=== PATIENT | female | born 1960 | race Caucasian/White ===

== ENCOUNTER → 2018-05-06 | Outpatient (CLI) | payer OTHER ==
--- NOTE | 2018-05-06 14:56 | DIAGNOSTIC IMAGING REPORT ---
L-SPINE MIN 4 VIEWS ROUTINE HISTORY: Pain M25.561 Bilateral knee [id number] COMPARISON: None. FINDINGS: There is no fracture. No subluxation. Disc spaces are preserved. IMPRESSION: No fracture or subluxation within the lumbar spine. The above report was generated using voice recognition software. It may contain grammatical, syntax or spelling errors. Electronically signed by: Roshan Banegas M.D. 05/06/2018 2:55 PM Dictated Date/Time: 05/06/2018 2:55 PM
--- NOTE | 2018-05-06 14:58 | DIAGNOSTIC IMAGING REPORT ---
L KNEE 1 OR 2 VIEWS ROUTINE, R KNEE 1 OR 2 VIEWS ROUTINE CLINICAL HISTORY: Bilateral knee pain. COMPARISON STUDY: None. FINDINGS: No fracture or dislocation. Soft tissues are unremarkable. No knee effusions. Cartilage spaces are maintained. Small subchondral cystic focus within the left patella. This measures 5 mm. No intra-articular loose bodies. IMPRESSION: 1. No fracture or dislocation within the right or left knee. 2. Small subchondral cystic focus within the left patella. This could be due to old trauma or degenerative change. Electronically signed by: Daren Thorne M.D. 05/06/2018 2:57 PM Dictated Date/Time: 05/06/2018 2:54 PM
--- NOTE | 2018-05-06 14:58 | DIAGNOSTIC IMAGING REPORT ---
SACRUM COCCYX MIN 2 VIEWS HISTORY: 57 years-old Female M25.561 Bilateral knee [id number] acute low back and sacral pain COMPARISON: Lumbar spine radiographs of same day TECHNIQUE: 2 views of the sacrum and coccyx FINDINGS: Intervertebral disc space narrowing at L5-S1. Mild general changes of the SI joints. Sacrum and coccyx appear intact without acute fracture or subluxation identified. No erosive changes of the SI joints to suggest sacroiliitis. Probable phleboliths of the left hemipelvis. IMPRESSION: No acute fracture or subluxation. The above report was generated using voice recognition software. It may contain grammatical, syntax or spelling errors. Electronically signed by: Johnny Esquivel M.D. 05/06/2018 2:56 PM Dictated Date/Time: 05/06/2018 2:55 PM
[2018-05-06 17:17] LABS: HEMATOCRIT 41.8 % (37-47); HEMOGLOBIN 13.3 g/dL (12.0-16.0); MEAN CORPUSCULAR HEMOGLOBIN 26.1 pg (25-34); MEAN CORPUSCULAR HGB CONC 31.8 g/dl (32-36); MEAN PLATELET VOLUME 10.7 fL (7.4-10.4); PLATELET COUNT 248 K/uL (130-400); RED CELL DISTRIBUTION WIDTH CV 15.5 % (11.5-14.5); RED CELL DISTRIBUTION WIDTH SD 46.5 fL (36.4-46.3); WHITE BLOOD COUNT 10.08 K/uL (4.8-10.8)
[2018-05-06 17:52] LABS: ALBUMIN 3.9 gm/dl (3.4-5.0); ALKALINE PHOSPHATASE 72 U/L (45-117); ALT/SGPT 22 U/L (12-78); AST/SGOT 16 U/L (15-37); BLOOD UREA NITROGEN 22 mg/dl (7-18); CALCIUM 8.8 mg/dl (8.5-10.1); CARBON DIOXIDE 26 mmol/L (21-32); CHOLESTEROL 215 mg/dl (0-200); CREATININE 0.78 mg/dl (0.60-1.20); GLUCOSE 108 mg/dl (70-99); LDL CHOLESTEROL CALCULATED 109 mg/dl; POTASSIUM 3.7 mmol/L (3.5-5.1); SODIUM 138 mmol/L (136-145); TOTAL PROTEIN 7.9 gm/dl (6.4-8.2)
[2018-05-07 06:08] LABS: HEMOGLOBIN A1C 5.7 % (4.5-5.6)
== END | disposition home or self-care (01) ==
LOC: C.LABPVFM 14:15
PROVIDERS: ATTEND Family Medicine
DX: M25.562 Pain in left knee (principal); M25.561 Pain in right knee; M85.88 Other specified disorders of bone density and structure, other site

== ENCOUNTER → 2018-05-07 | Outpatient (CLI) | payer OTHER ==
--- NOTE | 2018-05-10 15:10 | MAMMOGRAPHY REPORT ---
BILATERAL DIGITAL SCREENING MAMMOGRAM TOMOSYNTHESIS WITH CAD: 05/07/2018 CLINICAL HISTORY: Routine screening. Patient has no complaints. TECHNIQUE: The study was acquired using full field digital technology and interpreted from soft copy. Breast tomosynthesis in addition to standard 2D mammography was performed. Current study was also ev aluated with a Computer Aided Detection (CAD) system. COMPARISON: No prior exams were available for comparison. BREAST COMPOSITION: The tissue of both breasts is heterogeneously dense, which may obscure small mass es. FINDINGS: There are faint calcifications throughout the left upper outer quadrant, for which spot magnification views are recommended for further evaluation. Additionally, there is a nodular 6 mm asymmetry seen within the right medial breast middle depth on the cc view, thought to project superiorly based on th e tomosynthesis localizer bar. Recommend spot compression tomosynthesis views and possible breast ul trasound for further evaluation. Remainder of both breasts demonstrate no suspicious masses, calcifications, or areas of architectural distortion. There are scattered bilateral punctate and round benign-appearing calcifications. A re niform 6 mm mass with fatty hilum seen within the right medial breast on the cc view has the appearan ce of an intramammary lymph node. IMPRESSION: ACR BI-RADS CATEGORY 0: INCOMPLETE EVALUATION: NEED ADDITIONAL IMAGING EVALUATION Left upper outer quadrant calcifications and right breast asymmetry, for which additional imaging hallie luation is recommended given no priors for comparison. The patient will be called to schedule an appointment. Some breast cancers are not detected with mammography. A negative mammographic report should not leigh ann y biopsy if a clinically suggestive mass is present. Pavithra Snow M.D. ah/:05/07/2018 16:29:10 Administrative Coordinator: Gladys Beauchamp, [facility] letter sent: Addl Imaging 0 BI-RADS Code: ACR BI-RADS Category 0: Incomplete Evaluation: Need Additional Imaging Evaluation
== END | disposition home or self-care (01) ==
LOC: C.MAMM 08:57
PROVIDERS: ATTEND Family Medicine
DX: Z12.31 Encounter for screening mammogram for malignant neoplasm of breast (principal); R92.1 Mammographic calcification found on diagnostic imaging of breast; N64.89 Other specified disorders of breast